=== PATIENT | male | born 1985 | race Caucasian/White ===

== ENCOUNTER 2022-03-07 08:33 | Emergency (ER) | payer MEDICAID, SELFPAY ==
[2022-03-07 09:02] VITALS: BP 140/92; PULSE 92; RESP 18; TEMP 36.8; O2SAT 96; BMI 25.7
--- NOTE | 2022-03-07 09:31 | EXP.UTC ---
Discharge Plan Disposition Patient Disposition: Home, Self-Care Condition: Good Chief Complaint: Shortness of Breath/Dyspnea Prescriptions Prescriptions: New doxycycline monohydrate 100 mg tablet 100 mg PO BID Qty: 20 0RF prednisone 20 mg tablet 20 mg PO BID Qty: 10 0RF albuterol sulfate 90 mcg/actuation HFA aerosol inhaler 2 inh inhalation Q6H PRN (Reason: shortness of breath or wheezing) Qty: 8.5 0RF No Action buprenorphine-naloxone [Suboxone] 8-2 mg Tablet, Sublingual 2 tab SUBLINGUAL DAILY losartan 50 mg tablet 1 mg PO DAILY Label Comments: TAKE ONE TABLET BY MOUTH ONCE DAILY bupropion HCl 300 mg tablet extended release 24 hr 300 mg PO DAILY Label Comments: TAKE one tablet once a day folic acid 1 mg tablet 1 mg PO DAILY Label Comments: take one tablet by mouth once a day gabapentin 800 mg tablet 800 mg PO TID Label Comments: TAKE ONE TABLET BY MOUTH THREE TIMES DAILY Referrals Follow up/Referrals: Joselito Brito APRN [Referring] - Enter time for follow up Activity Restrictions/Add. Instructions Additional Instructions/Restrictions: Follow up with PCP if not improving Clinical Impressions Clinical Impression: Bronchitis Instructions Patient Instructions: DI for Shortness of Breath Discharge ED Provider: Peggy Sarah [facility] General Chief complaint: Shortness of Breath/Dyspnea Stated complaint: soa, cough, h/a Mode of Arrival: Ambulatory Source of Information: Patient Limitations: No Limitations Time Seen by Provider: 03/07/22 09:23 Description of Symptoms (Recalled from Triage Doc. by RN): patient comes in with complaints of respiratory symptoms. cough, fatigue. symptoms began 4 days ago. pt thinks he may have bronchitis HEENT Symptoms (Recalled from RN notes): No Resp Symptoms (Recalled from RN notes): Yes Skin Symptoms (Recalled from RN notes): No MS Symptoms (Recalled from RN notes): No Functional Status (Recalled from RN notes): n/a History of Present Illness Provider Complaint: Cough, congestion, wheezing X 4 days. Feels very tired. Chest is tight. Cough is rarely productive. No fever. No vomiting or diarrhea. Patient does smoke. Gets bronchitis once a year or so. No diagnosis of COPD. Onset (ago): day(s) Location: chest Radiation: non-radiation Relieving factors: none Exacerbating factors: none Associated symptoms: cough and shortness of breath Treatments prior to arrival: none Related Data Home Medications Medication Instructions Recorded Confirmed buprenorphine 8 mg-naloxone 2 mg 2 tab sublingual DAILY substance 03/07/22 03/07/22 sublingual tablet abuse bupropion HCl 300 mg 24 hr tablet, 300 mg PO DAILY Anxiety 03/07/22 03/07/22 extended release folic acid 1 mg tablet 1 mg PO DAILY Supplement 03/07/22 03/07/22 gabapentin 800 mg tablet 800 mg PO TID Pain 03/07/22 03/07/22 losartan 50 mg tablet 1 mg PO DAILY High blood pressure 03/07/22 03/07/22 Previous Rx's Medication Instructions Recorded albuterol sulfate 90 mcg/actuation 2 inh inhalation Q6H PRN shortness 03/07/22 aerosol inhaler of breath or wheezing #8.5 grams doxycycline monohydrate 100 mg 100 mg PO BID #20 tabs 03/07/22 tablet prednisone 20 mg tablet 20 mg PO BID #10 tabs 03/07/22 Allergies Allergy/AdvReac Type Severity Reaction Status Date / Time No Known Allergies Allergy Verified 03/07/22 09:05 Worker's Comp Is this a Worker's Comp case?: No PFSH PFS Social History (Updated 03/07/22 @ 09:05 by Oscar Chacon RN) Smoking Status: Current every day smoker alcohol intake: never current occupational status: other ROS Obtained: Yes All systems reviewed & no additional complaints except as documented Constitutional Constitutional: Reports fatigue and Reports malaise Cardiovascular Cardiovascular: Reports dyspnea Respiratory Respiratory: Reports chest congestion, Reports cough and Repo
[2022-03-07 09:55] VITALS: BP 140/92; PULSE 92; RESP 18; TEMP 36.8
== END 2022-03-07 10:03 | disposition home or self-care (01) ==
PROVIDERS: Emergency Provider Physician Assistant; PCP Registered Nurse
DX: Z79.899 Other long term (current) drug therapy (principal); Z72.0 Tobacco use; J40 Bronchitis, not specified as acute or chronic
CPT/HCPCS: 96372; 99212; C9803; G0463; J0696; J1040; U0003; U0005

== ENCOUNTER 2023-06-11 01:46 | Emergency (ER) | payer SELFPAY ==
[2023-06-11 01:47] VITALS: BP 158/115; PULSE 86; RESP 16; TEMP 36.5; O2SAT 96; BMI 15.7
[2023-06-11 01:51] VITALS: BP 158/115; PULSE 77; O2SAT 100
--- NOTE | 2023-06-11 02:03 | PC.NURSE ---
Pt pulled BP cuff off, got out of bed, and started drinking from faucet in room against medical advice.
--- NOTE | 2023-06-11 02:04 | CT_ITS ---
PROCEDURE INFORMATION: Exam: CT Abdomen And Pelvis With Contrast Exam date and time: 06/11/2023 4:45 AM Age: 38 years old Clinical indication: Abdominal pain; Additional info: Abd pain, intractable n/v TECHNIQUE: Imaging protocol: Computed tomography of the abdomen and pelvis with contrast. Radiation optimization: All CT scans at this facility use at least one of these dose optimization techniques: automated exposure control; mA and/or kV adjustment per patient size (includes targeted exams where dose is matched to clinical indication); or iterative reconstruction. Contrast material: ISOVUE; Contrast volume: 75 ml; Contrast route: IV; REPORTING DATA: Count of CT and Cardiac NM exams in prior 12 months: This patient has received 0 known CTs and 0 known cardiac nuclear medicine studies in the 12 months prior to the current study. COMPARISON: No relevant prior studies available. FINDINGS: Lungs: There is a 4 mm pleural-based noncalcified nodule along the lingula convexity on series 3, image 3. Liver: There is low-density noted along the falciform ligament likely representing focal fatty infiltration of the liver. Gallbladder and bile ducts: The gallbladder is partially contracted. There is mild intra and extrahepatic biliary ductal dilatation. The common bile duct measures up to 8 mm. Pancreas: There may be a pancreas divisum with mild prominence of the main pancreatic duct. Consider MRI of the abdomen with and without contrast and MRCP to further assess. Spleen: Calcified splenic granulomas are noted. Adrenal glands: Normal. No mass. Kidneys and ureters: The kidneys enhance symmetrically and there is no hydronephrosis. Exophytic from the lower pole of the left kidney there is an 18 mm round cortical cyst for which no further imaging of follow up as necessary. Stomach and bowel: There is notable distention with fluid of the stomach and proximal 2/3 of the duodenum with an abrupt transition as it passes between the aorta and superior mesenteric artery. No mucosal thickening. Appendix: No evidence of appendicitis. Intraperitoneal space: Unremarkable. No free air. No significant fluid collection. Vasculature: Aortic superior mesenteric angle measures 13 degrees. The abdominal aorta is normal in course and caliber. There is notable compression of the left renal vein as it passes between the aorta and superior mesenteric artery. Lymph nodes: Unremarkable. No enlarged lymph nodes. Urinary bladder: The urinary bladder is contracted. Reproductive: Unremarkable as visualized. Bones/joints: Lumbosacral spondylosis is noted. Soft tissues: Unremarkable. 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 Please correlate clinically. Splenic granulomas. Biliary and pancreatic ductal dilatation for which MRI of the abdomen with and without contrast and MRCP is suggested to further assess. Small lingular pulmonary nodule. Focal fatty infiltration of the liver. Recommend follow-up CT Chest in 6-12 months. (References: Shabnam and Eduardo) References: Shabnam Cherry, et al. Guidelines for Management of Incidental Pulmonary Nodules Detected on CT Images: From the Fleischner Society 2017. Radiology. 2017;284(1):228-243. References: Eduardo J, et al. Updated Fleischner Society Guidelines for Managing Incidental Pulmonary Nodules: Common Questions and Challenging Scenarios. Radiographics. 2018;38(5):7466-3350.
[2023-06-11 02:09] LABS: Basophils % 0.4 % (0.1-2.0); Eosinophils # 0.1 K/mm3 (0.0-0.4); Hematocrit 51.7 % (42.0-52.0); Hemoglobin 17.6 g/dL (14.1-18.0); Lymphocytes # 1.3 K/mm3 (0.7-4.5); Lymphocytes % 18.6 % (10-50); Mean Corpuscular HGB Conc 34.1 g/dL (31.8-35.4); Mean Corpuscular Hemoglobin 28.5 pg (27.0-31.2); Mean Corpuscular Volume 83.6 fl (80-94); Mean Platelet Volume 7.8 fl (7.4-10.4); Monocytes # 0.4 K/mm3 (0.1-1.0); Neutrophils # 5.3 K/mm3 (1.8-7.8); Neutrophils % 74.1 % (37.0-80.0); Platelet Count 277 K/mm3 (142-424); Red Blood Count 6.18 M/mm3 (4.60-6.20); Red Cell Distribution Width 13.2 % (11.5-17.5); White Blood Count 7.1 K/mm3 (4.8-10.8)
[2023-06-11 02:16] LABS: Alanine Aminotransferase 49 U/L (12-78); Albumin Level 5.2 g/dl (3.5-5.0); Albumin/Globulin Ratio 1.4 (1.1-1.8); Alkaline Phosphatase 95 U/L (38-126); Anion Gap 12.1 mEq/L (5-15); Aspartate Amino Transferase 46 U/L (17-59); Bilirubin,Total 0.5 mg/dl (0.2-1.3); Blood Urea Nitrogen 17 mg/dl (9-20); Calcium 10.4 mg/dl (8.4-10.2); Carbon Dioxide 33 mmol/L (22.0-30.0); Chloride 99 mmol/L (98-107); Creatinine Clearance Estimated 70 mL/min (50-200); Estimated Glomerular Filt Rate 83 ml/min (>60); GFR (African American) 101 ML/MIN (>60); Globulin 3.6 g/dL (1.3-3.2); Glucose 187 mg/dl (74-100); Lipase 38 U/L (23-300); Potassium 4.1 mmoL/L (3.5-5.1); Sodium 140 mmol/L (136-145); Total Protein,Serum 8.8 g/dl (6.3-8.2)
[2023-06-11 02:17] LABS: Lactic Acid 1.7 mmol/L (0.7-2.1)
[2023-06-11 02:18] LABS: INR 1.01 (0.9-1.1); Prothrombin Time 10.9 seconds (10.1-12.5)
--- NOTE | 2023-06-11 02:26 | HMH.EDGENADL ---
Discharge Plan Disposition Patient Disposition: Left Against Medical Advice Condition: Fair Prescriptions Prescriptions: No Action buprenorphine-naloxone [Suboxone] 8-2 mg Tablet, Sublingual 2 tab SUBLINGUAL DAILY losartan 50 mg tablet 1 mg PO DAILY Patient Comments: TAKE ONE TABLET BY MOUTH ONCE DAILY bupropion HCl 300 mg tablet extended release 24 hr 300 mg PO DAILY Patient Comments: TAKE one tablet once a day folic acid 1 mg tablet 1 mg PO DAILY Patient Comments: take one tablet by mouth once a day gabapentin 800 mg tablet 800 mg PO TID Patient Comments: TAKE ONE TABLET BY MOUTH THREE TIMES DAILY doxycycline monohydrate 100 mg tablet 100 mg PO BID Qty: 20 0RF prednisone 20 mg tablet 20 mg PO BID Qty: 10 0RF albuterol sulfate 90 mcg/actuation HFA aerosol inhaler 2 inh inhalation Q6H PRN (Reason: shortness of breath or wheezing) Qty: 8.5 0RF Referrals Follow up/Referrals: Provider,Referral, MD [Primary Care Provider] - See instructions Activity Restrictions/Add. Instructions Additional Instructions/Restrictions: You were evaluated in the emergency department today. It was explained to you that you have superior mesenteric artery syndrome and nutcracker phenomenon of your renal vein. You also have dilated bile ducts. For this, we recommended transfer to higher level of care for evaluation by vascular surgery given your severe symptoms. You declined and left AGAINST MEDICAL ADVICE. Please follow-up with the surgeon as soon as possible. Return to the emergency department for new or worsening symptoms or should you wish to be evaluated. Clinical Impressions Clinical Impression: Nausea vomiting and diarrhea, Abdominal pain, SMAS (superior mesenteric artery syndrome), Dilated bile duct, Nutcracker phenomenon of renal vein Instructions Patient Instructions: DI for Abdominal Pain-Adult, DI for Diarrhea and Traveler's Diarrhea -- Adult, DI for Nausea -- Adult Discharge ED Provider: Carla Mccord General Adult HPI General Chief complaint: Nausea/Vomiting/Diarrhea Stated complaint: nausea Time Seen by Provider: 06/11/23 01:56 Mode of Arrival: Wheelchair Source of Information: Patient Limitations: No Limitations Description of Symptoms (Recalled from ER Triage Doc. by RN): pt c/o n/v/d and abd cramping that started @ 4pm History of Present Illness HPI narrative: This patient is a 38-year-old male who has history of chronic opioid dependence on Suboxone presenting to the emergency department for evaluation with concern for nausea, vomiting, and diarrhea. He notes that this started around 5:00 PM. He complains of generalized abdominal cramping. He was well prior to this without any other concerns or complaints at this time. Related Data Home Medications Medication Instructions Recorded Confirmed buprenorphine 8 mg-naloxone 2 mg 2 tab sublingual DAILY substance 03/07/22 03/07/22 sublingual tablet abuse bupropion HCl 300 mg 24 hr tablet, 300 mg PO DAILY Anxiety 03/07/22 03/07/22 extended release folic acid 1 mg tablet 1 mg PO DAILY Supplement 03/07/22 03/07/22 gabapentin 800 mg tablet 800 mg PO TID Pain 03/07/22 03/07/22 losartan 50 mg tablet 1 mg PO DAILY High blood pressure 03/07/22 03/07/22 Previous Rx's Medication Instructions Recorded albuterol sulfate 90 mcg/actuation 2 inh inhalation Q6H PRN shortness 03/07/22 aerosol inhaler of breath or wheezing #8.5 grams doxycycline monohydrate 100 mg 100 mg PO BID #20 tabs 03/07/22 tablet prednisone 20 mg tablet 20 mg PO BID #10 tabs 03/07/22 Allergies Allergy/AdvReac Type Severity Reaction Status Date / Time No Known Allergies Allergy Verified 03/07/22 09:05 [facility] Disclaimer: The information contained in this section may have been updated after the patient was seen, as this information can be updated by other users. Social History (Reviewed 06/11/23 @ 03:03 by
--- NOTE | 2023-06-11 02:28 | HMH.ITSTN ---
patient refusing to lay flat on back for CT scan at this time. patient taken back to his room & ER aware
[2023-06-11 04:00] VITALS: BP 156/94; PULSE 80; O2SAT 99
[2023-06-11 04:30] VITALS: BP 141/81; PULSE 88; O2SAT 96
[2023-06-11 05:00] VITALS: BP 137/83; PULSE 85; O2SAT 100
--- NOTE | 2023-06-11 06:04 | PC.NURSE ---
Dr. Mccord at bedside speaking with patient regarding possible transfer for vascular surgery. Patient states that he does not wish to be transferred. Dr. Mccord explained the risks and benefits of transfer, patient verbalizes that he would like to leave AMA, verbalizes he understand the risks including deterioration of condition, damage to organs, and possible . Patient is alert and oriented x 4.
[2023-06-11 06:48] VITALS: BP 141/85; PULSE 83; RESP 16; TEMP 36.5; O2SAT 97
== END 2023-06-11 06:50 | disposition left against medical advice (07) ==
PROVIDERS: Emergency Provider Emergency Medicine
DX: K55.1 Chronic vascular disorders of intestine (principal); K83.8 Other specified diseases of biliary tract; I87.1 Compression of vein; R10.84 Generalized abdominal pain; R11.2 Nausea with vomiting, unspecified; R19.7 Diarrhea, unspecified; F11.20 Opioid dependence, uncomplicated; F17.200 Nicotine dependence, unspecified, uncomplicated
CPT/HCPCS: 74177; 80053; 83605; 83690; 85025; 85610; 96361; 96374; 96375; 99285; J0131; J2405; Q9967

== ENCOUNTER 2023-09-16 08:47 | Emergency (ER) | payer SELFPAY ==
[2023-09-16 08:47] VITALS: BP 162/95; PULSE 134; RESP 24; TEMP 36.4; O2SAT 95; BMI 20.1
--- NOTE | 2023-09-16 08:50 | HMH.EDGENADL ---
Discharge Plan Prescriptions Prescriptions: No Action buprenorphine-naloxone [Suboxone] 8-2 mg Tablet, Sublingual 2 tab SUBLINGUAL DAILY losartan 50 mg tablet 1 mg PO DAILY Patient Comments: TAKE ONE TABLET BY MOUTH ONCE DAILY bupropion HCl 300 mg tablet extended release 24 hr 300 mg PO DAILY Patient Comments: TAKE one tablet once a day folic acid 1 mg tablet 1 mg PO DAILY Patient Comments: take one tablet by mouth once a day gabapentin 800 mg tablet 800 mg PO TID Patient Comments: TAKE ONE TABLET BY MOUTH THREE TIMES DAILY doxycycline monohydrate 100 mg tablet 100 mg PO BID Qty: 20 0RF prednisone 20 mg tablet 20 mg PO BID Qty: 10 0RF albuterol sulfate 90 mcg/actuation HFA aerosol inhaler 2 inh inhalation Q6H PRN (Reason: shortness of breath or wheezing) Qty: 8.5 0RF Clinical Impressions Clinical Impression: Acute encephalopathy, Acute drug overdose, Carbon monoxide poisoning Discharge ED Provider: Christos Gupta General Adult HPI General Stated complaint: OVERDOSE Time Seen by Provider: 09/16/23 08:48 History of Present Illness HPI narrative: Patient is a 38-year-old male in today by EMS after a presumed overdose. Apparently bystanders gave Narcan and the patient admits to snorting medications but is unable to tell me exactly what. He is encephalopathic and history is significantly limited. Patient was initially found unresponsive but has improved significantly since being brought in by EMS. There was also concern for possible carbon monoxide exposure. Patient had a generator running with a very heavy smell of kerosene and the fire department check carbon monoxide levels which were significantly elevated. Patient was removed from the environment immediately. No additional Narcan was needed. Patient was awake interactive upon arrival. But remains encephalopathic. There is also history that the patient had been drinking alcohol and possibly doing other drugs yesterday evening. Related Data Home Medications Medication Instructions Recorded Confirmed buprenorphine 8 mg-naloxone 2 mg 2 tab sublingual DAILY substance 03/07/22 03/07/22 sublingual tablet abuse bupropion HCl 300 mg 24 hr tablet, 300 mg PO DAILY Anxiety 03/07/22 03/07/22 extended release folic acid 1 mg tablet 1 mg PO DAILY Supplement 03/07/22 03/07/22 gabapentin 800 mg tablet 800 mg PO TID Pain 03/07/22 03/07/22 losartan 50 mg tablet 1 mg PO DAILY High blood pressure 03/07/22 03/07/22 Previous Rx's Medication Instructions Recorded albuterol sulfate 90 mcg/actuation 2 inh inhalation Q6H PRN shortness 03/07/22 aerosol inhaler of breath or wheezing #8.5 grams doxycycline monohydrate 100 mg 100 mg PO BID #20 tabs 03/07/22 tablet prednisone 20 mg tablet 20 mg PO BID #10 tabs 03/07/22 Allergies Allergy/AdvReac Type Severity Reaction Status Date / Time No Known Allergies Allergy Verified 03/07/22 09:05 [facility] Disclaimer: The information contained in this section may have been updated after the patient was seen, as this information can be updated by other users. Social History Smoking Status: Current every day smoker alcohol intake: never current occupational status: other Travel in the last 8 weeks: None ROS Obtained: Yes All systems reviewed & no additional complaints except as documented Physical Exam General General appearance: lethargic Eye Eye exam: Present other (Pinpoint pupils) Respiratory Respiratory exam: Present other (Tachypneic) Cardiovascular Cardiovascular exam: Present tachycardia Abdominal Exam Abdominal exam: Present soft; Absent distention or tenderness Neurological Exam Neurological exam: Present alert and CN II-XII intact; Absent oriented X3 or motor sensory deficit Skin Skin exam: Present other (Diffuse piloerection cool extremities and tremors) Medical Decision Making Joseph Inquiry Pt receiving controlled substance: No Lab Data Lab results reviewed: Yes I reviewed the patient's lab results. Lab Results 09/16/23 08:48: Carboxyhemoglobin 46.0 H* 09/16/23 08:49: Specimen Source Right radial, ABG pH 7.28 L, ABG pCO2 34.1 L, ABG pO2 112.1 H, ABG HCO3 15.6 L, ABG Total CO2 16.6 L, ABG O2 Saturation 97, ABG Base Excess -11.2 L, Buddy Test Acceptable Orders (Tests/Meds): ORDERS Category Date Time Status Acetaminophen Stat Lab 09/16/23 08:45 Received CBC w/Auto Diff [Complete Blood Count Auto Diff] Stat Lab 09/16/23 08:45 Received CMP [Comprehensive Metabolic Panel] Stat Lab 09/16/23 08:45 Received Ethanol [Ethyl Alcohol] Stat Lab 09/16/23 08:45 Received HIV Panel [id number] Stat Lab 09/16/23 08:48 Ordered Hepatitis C Antibody Stat Lab 09/16/23 08:48 Ordered Lactic Acid Stat Lab 09/16/23 08:45 Received Salicylate Stat Lab 09/16/23 08:45 Received Trop I [Troponin I] Stat Lab 09/16/23 08:45 Received Troponin I Q3H Lab 09/16/23 12:00 Ordered Troponin I Q3H Lab 09/16/23 15:00 Ordered UDS [Drug Screen,Urine] Stat Lab 09/16/23 08:49 Ordered ABG [Arterial Blood Gas] Stat RT 09/16/23 08:49 Completed Carboxyhemoglobin Stat RT 09/16/23 08:48 Completed Medical Decision Narrative: Patient is a 38-year-old male presenting today with at a minimum an opiate overdose as he has significant improvement after Narcan administration still has pinpoint pupils but is now breathing rapidly and tachycardic on occasion for any additional Narcan administration. Likely has coingestions of other drugs given the fact that he is still somewhat encephalopathic. Is possible he has carbon monoxide poisoning and has some CAR WORKER involvement regarding that we will check a carboxyhemoglobin level to further evaluate this. Additionally we will check for other endorgan damage including EKG troponin basic blood work. He has a nonfocal neurologic exam is interactive with me right now just mildly encephalopathic GCS of 14. His neurologic exam is otherwise nonfocal. No evidence of trauma. Will reassess after this initial workup is complete. Patient's ABG came back with a pH of 7.28 and carboxyhemoglobin level of 46. Nonrebreather has been applied. Patient was encephalopathic was unconscious at scene continues to be altered and presumably this is multifactorial but at this point is largely attributable to carbon monoxide poisoning. Patient will need to be transferred for hyperbaric oxygen therapy. Reassessment 9:08 AM I spoke with Dr. Murcia [facility] regarding the patient's need for hyperbaric oxygen treatment patient was accepted by him to [place] emergency department for further management. Remainder of workup is pending at this moment. Critical Care Critical Care Time Critical Care Time: Yes Attestation: On , the high probability of a clinically significant, sudden or life threatening deterioration of the following system(s) required my full and direct attention, intervention and personal management. The time I documented below is in addition to time spent performing reported procedures but includes the following listed in this critical care notation. Total Time Total Critical Care Time: 35
[2023-09-16 08:55] LABS: ABG Base Excess -11.2 mmol/L (-2.4-2.3); ABG HCO3 15.6 mmhg (22.0-26.0); ABG Oxygen Saturation 97 % (90-100); ABG PCO2 34.1 mmhg (35.0-45.0); ABG PH 7.28 mmol/L (7.35-7.45); ABG PO2 112.1 mmhg (80-100); ABG TCO2 16.6 mmhg (23-27); Allen's Test Acceptable; Source Right Radial
--- NOTE | 2023-09-16 08:55 | PC.NURSE ---
pt's clothes removed and dry gown and several warm blankets and non-skid socks applied. Per MD, place pt on 100% NRB
[2023-09-16 09:00] VITALS: PULSE 70; RESP 22
--- NOTE | 2023-09-16 09:04 | PC.NURSE ---
CALL FOR POSSIBLE TRANSFER
--- NOTE | 2023-09-16 09:05 | PC.NURSE ---
SPEAKING WITH MD
[2023-09-16 09:10] LABS: Basophils # 0.1 K/mm3 (0-0.2); Basophils % 0.6 % (0.1-2.0); Eosinophils # 0.2 K/mm3 (0.0-0.4); Hematocrit 48.5 % (42.0-52.0); Hemoglobin 15.2 g/dL (14.1-18.0); Lymphocytes # 3.3 K/mm3 (0.7-4.5); Lymphocytes % 17.9 % (10-50); Mean Corpuscular HGB Conc 31.4 g/dL (31.8-35.4); Mean Corpuscular Hemoglobin 28.4 pg (27.0-31.2); Mean Corpuscular Volume 90.6 fl (80-94); Mean Platelet Volume 7.8 fl (7.4-10.4); Monocytes # 0.6 K/mm3 (0.1-1.0); Monocytes % 3.5 % (1.7-9.3); Neutrophils % 77.1 % (37.0-80.0); Platelet Count 347 K/mm3 (142-424); Red Blood Count 5.35 M/mm3 (4.60-6.20); Red Cell Distribution Width 13.8 % (11.5-17.5); White Blood Count 18.2 K/mm3 (4.8-10.8)
--- NOTE | 2023-09-16 09:10 | PC.NURSE ---
ATTEMPTED TO RETRIEVE EKG ON PT HE IS UNABLE TO STAY STILL ROLLED AROUND IN BED STATING HE WAS HURTING. REQUESTED MED TO HELP WITH HIS WITHDRAWALS. MD AWARE OF PT BEHAVIOR AND UNABLE TO RETRIEVE EKG
[2023-09-16 09:12] LABS: MANUAL DIFFERENTIAL MANUAL DIFFERENTIAL (MANUAL DIFF)
[2023-09-16 09:23] LABS: Alanine Aminotransferase 45 U/L (12-78); Albumin Level 4.5 g/dl (3.5-5.0); Albumin/Globulin Ratio 1.8 (1.1-1.8); Alkaline Phosphatase 118 U/L (38-126); Anion Gap 24.1 mEq/L (5-15); Aspartate Amino Transferase 40 U/L (17-59); Bilirubin,Total 0.3 mg/dl (0.2-1.3); Blood Urea Nitrogen 18 mg/dl (9-20); Calcium 9.5 mg/dl (8.4-10.2); Carbon Dioxide 19 mmol/L (22.0-30.0); Chloride 104 mmol/L (98-107); Creatinine Clearance Estimated 72 mL/min (50-200); Estimated Glomerular Filt Rate 75 ml/min (>60); GFR (African American) 90 ML/MIN (>60); Globulin 2.5 g/dL (1.3-3.2); Glucose 242 mg/dl (74-100); Potassium 4.1 mmoL/L (3.5-5.1); Sodium 143 mmol/L (136-145)
[2023-09-16 09:24] LABS: Acetaminophen < 10 ug/ml (10-30); Lactic Acid 11.9 mmol/L (0.7-2.1); Salicylate < 1.0 mg/dL (2.0-20.0)
--- NOTE | 2023-09-16 09:24 | PC.NURSE ---
Dr. Gupta notified of critical Lactic
[2023-09-16] MEDS: ONDANSETRON 4MG/2ML VIAL 4 MG IV (09:27)
[2023-09-16] MEDS: KETOROLAC 30MG/ML VIAL 15 MG IV (09:27)
[2023-09-16] MEDS: cloNIDine 0.1MG TABLET 0.100000000000000006 MG PO (09:27)
--- NOTE | 2023-09-16 09:30 | PC.NURSE ---
attempted multiple times to have pt on heart monitor and vitals machine and oxygen including nonbreather and nc, pt is rolling all over the bed, taking the wires for monitors and oxygen off. No difficulty for breathing noted at this time on assessment. Attempting to redirect pt to stay in the bed due to concern for injury if he was unstable on feet, pt states that he is just restless and hurts to stay in one spot. Gave pt warm blankets, pillow with no satisfaction to pt, he continues to roll around stating that he is hurting. aware and has ordered meds (see MAR).
[2023-09-16 09:31] LABS: Eosinophils % 1 % (0-3); Lymphocytes % 21 % (10-50); Monocytes % 1 % (2-9); Neutrophils % 77 % (42-76); Total Cells Counted 100
[2023-09-16 09:32] LABS: Platelet Estimate Normal; RBC Morphology Normal
--- NOTE | 2023-09-16 09:35 | PC.NURSE ---
redirecting pt to continue to stay in the bed. attempted to put monitors back on pt, vss stable at this time. pt will only keep bp cuff and oxygen prob on for limited amount of time.
[2023-09-16 09:36] LABS: Troponin I < 0.01 ng/ml (0.00-0.034)
[2023-09-16 09:37] VITALS: BP 145/103; PULSE 137; O2SAT 100
--- NOTE | 2023-09-16 09:42 | PC.NURSE ---
redirecting pt to stay in bed, pt continues to roll in the bed stating he is hurting
[2023-09-16 09:45] LABS: Ethyl Alcohol < 10 mg/dl (0-10)
[2023-09-16] MEDS: ACETAMINOPHEN 1,000MG/100ML VIAL 1000 MG IV (09:55)
--- NOTE | 2023-09-16 09:55 | PC.NURSE ---
HS at bs with drink for pt who states he is thirsty, pt seems to calm after drink, resting for a few moments before rolling around again, asking when he is leaving going to the other hospital, updated pt that we are waiting on truck availability at this time
--- NOTE | 2023-09-16 09:56 | PC.NURSE ---
pt placed back in gown and IV reinforced IV.
--- NOTE | 2023-09-16 10:07 | PC.NURSE ---
pt able to calm some in bed, asking about court that he had at 0900 this am and needing to get there, explained to pt about his medical condition and the need to go to the other hospital for further care, pt verbalizes understanding at this time.
--- NOTE | 2023-09-16 10:09 | PC.NURSE ---
pt given a drank stating that he is dehydrated.
[2023-09-16 10:15] VITALS: BP 117/70; PULSE 117; O2SAT 100
--- NOTE | 2023-09-16 10:17 | PC.NURSE ---
OK EMS HERE FOR TRANSPORT TO [facility]
[2023-09-16 10:19] VITALS: BP 117/70; PULSE 111; RESP 19; TEMP 36.4; O2SAT 100
[2023-09-16 13:03] LABS: Reflex Lactic Add Lactic Reflex
[2023-09-18 09:24] LABS: HIV Screen 4th Generation wRfx Non Reactive; Hepatitis C Antibody Non Reactive
== END 2023-09-16 10:25 | disposition short-term general hospital (02) ==
PROVIDERS: Emergency Provider Student in an Organized Health Care Education/Training Program
DX: T50.901A Poisoning by unspecified drugs, medicaments and biological substances, accidental (unintentional), initial encounter (principal); G93.49 Other encephalopathy; T58.91XA Toxic effect of carbon monoxide from unspecified source, accidental (unintentional), initial encounter; R00.0 Tachycardia, unspecified; R45.1 Restlessness and agitation; F17.210 Nicotine dependence, cigarettes, uncomplicated
CPT/HCPCS: 80053; 80329; 82375; 82803; 83605; 84484; 85007; 85025; 86703; 87380; 96374; 96375; 99291; G0432; J0131; J2405